=== PATIENT | male | born 1955 | race Caucasian/White ===

== ENCOUNTER 2017-04-09 10:12 | Emergency (ER) | payer MEDICARE, SELFPAY ==
--- NOTE | 2017-04-09 10:15 | EDM.PDOC ---
ED HPI GENERAL MEDICAL PROBLEM - General Chief Complaint: Bite:Animal, Insect Stated Complaint: STUNG BY BEE Time Seen by Provider: 04/09/17 10:29 Source of Information: Reports: Patient, RN, RN Notes Reviewed History Limitations: Reports: No Limitations - History of Present Illness INITIAL COMMENTS - FREE TEXT/NARRATIVE: Patient states he was stung by a bee this morning while using a chain saw. States stung on the top of the head. Feels like his airway is constricted. Lips feel swollen. Complains of nausea and burning sensation in his feet. All symptoms beginning immediately after bee sting. Onset: Today Location: Reports: Head, Chest, Lower Extremity, Left, Lower Extremity, Right Severity: Moderate Improves with: Reports: None Worsens with: Reports: None Associated Symptoms: Reports: No Other Symptoms Abdomen Pain Score (Numeric/FACES): 8 - Related Data Allergies Allergy/AdvReac Type Severity Reaction Status Date / Time No Known Allergies Allergy Verified 12/06/13 13:13 Home Meds: Home Meds Hydrochlorothiazide/Lisinopril [Lisinopril-HCTZ 20-12.5 MG] 25 - 40 tab PO BID 12/06/13 [History] Omeprazole 20 mg PO DAILY 12/06/13 [History] amLODIPine [Norvasc] 10 mg PO DAILY 12/06/13 [History] Social & Family History - Family History Family Medical History: Noncontributory - Tobacco Use Years of Tobacco use: 30 - Alcohol Use Days Per Week of Alcohol Use: 7 Number of Drinks Per Day: 3 Total Drinks Per Week: 21 - Recreational Drug Use Recreational Drug Use: No Drug Use in Last 12 Months: No Recreational Drug Type: Reports: Cocaine Recreational Drug Last Use: 20 YEARS AGO ED ROS GENERAL - Review of Systems Review Of Systems: ROS reveals no pertinent complaints other than HPI. ED EXAM, SKIN/RASH Exam: See Below Exam Limited By: No Limitations General Appearance: Alert, WD/WN, No Apparent Distress Eye Exam: Bilateral Eye: Normal Inspection Ears: Normal External Exam, Normal Canal, Hearing Grossly Normal, Normal TMs Nose: Normal Inspection, Normal Mucosa, No Blood Throat/Mouth: Other (lips mildly swollen. No swelling of tongue.) Head: Atraumatic, Normocephalic Neck: Normal Inspection, Supple, Non-Tender, Full Range of Motion Respiratory/Chest: Other (lung sounds diminished) Cardiovascular: Tachycardia GI/Abdominal: Tender, Other (nausea) (Male) Exam: Deferred Rectal (Males) Exam: Deferred Back Exam: Normal Inspection, Full Range of Motion, NT Extremities: Normal Inspection, Normal Range of Motion, Non-Tender, No Pedal Edema, Normal Capillary Refill Neurological: Other (feet burning-tingling sensation. ) Psychiatric: Anxious Skin: Other (No visible swelling at location of reported bee sting.) Lymphatic: No Adenopathy Course - Vital Signs Last Recorded V/S: Last Vital Signs Temp 97.3 F 04/09/17 10:31 Pulse 110 H 04/09/17 10:31 Resp 20 04/09/17 10:31 BP 103/58 L 04/09/17 10:31 Pulse Ox 96 04/09/17 10:31 - Orders/Labs/Meds Orders: Active Orders 24 hr Category Date Time Status Peripheral IV Care [RC] . DIRECTED Care 04/09/17 10:34 Active Sodium Chloride 0.9% [Saline Flush] Med 04/09/17 10:33 Active 10 ml FLUSH ASDIRECTED PRN Peripheral IV Insertion Adult [OM.PC] Stat Oth 04/09/17 10:34 Ordered Medication Orders Sodium Chloride (Saline Flush) 10 ml FLUSH ASDIRECTED PRN PRN Reason: Keep Vein Open Last Admin: 04/09/17 10:49 Dose: 10 ml Meds: Medications Generic Name Dose Route Start Last Admin Trade Name Freq PRN Reason Stop Dose Admin Sodium Chloride 10 ml 04/09/17 10:33 04/09/17 10:49 Saline Flush FLUSH 10 ml ASDIRECTED PRN Administration Keep Vein Open Discontinued Medications Generic Name Dose Route Start Last Admin Trade Name Freq PRN Reason Stop Dose Admin Diphenhydramine HCl 25 mg 04/09/17 10:34 04/09/17 10:46 Benadryl IVPUSH 04/09/17 10:35 25 mg ONETIME ONE Administration Methylprednisolone Sodium Succinate 125 mg 04/09/17 10:34 04/09/17 10:45 Solu-Medrol IVPUSH 04/09/17 10:35 125 mg ONETIME ONE Administration Ondansetron HCl 4 mg 04/09/17 10:35 04/09/17 10:43 Zofran IV 04/09/17 10:36 4 mg ONETIME ONE Administration Departure - Departure Time of Disposition: 11:16 Disposition: Home, Self-Care 01 Condition: Fair Clinical Impression: Insect bite or sting - Discharge Information Instructions: Insect Bite, [id number] Forms: ED Department Discharge Additional Instructions: RX: Prednisone 40mg. Zyrtec over the counter 10mg for 3 days. Follow up in clinic in 2-3 days. Return to ER with difficulty breathing or any further problems. - My Orders Last 24 Hours: My Active Orders 04/09/17 10:33 Sodium Chloride 0.9% [Saline Flush] 10 ml FLUSH ASDIRECTED PRN 04/09/17 10:34 Peripheral IV Care [RC] . DIRECTED Peripheral IV Insertion Adult [OM.PC] Stat - Assessment/Plan Last 24 Hours: My Active Orders 04/09/17 10:33 Sodium Chloride 0.9% [Saline Flush] 10 ml FLUSH ASDIRECTED PRN 04/09/17 10:34 Peripheral IV Care [RC] . DIRECTED Peripheral IV Insertion Adult [OM.PC] Stat
[2017-04-09] MEDS ORDERED: Sodium Chloride 0.9% 10 ML Syringe FLUSH PRN (10:33)
[2017-04-09] MEDS ORDERED: methylPREDNISolone Sodium Succinate 125 MG/2 ML SDV IVPUSH ONE (10:34)
[2017-04-09] MEDS ORDERED: diphenhydrAMINE 50 MG/ML SDV IVPUSH ONE (10:34)
[2017-04-09] MEDS ORDERED: Ondansetron 4 MG/2 ML SDV IV ONE (10:35)
[2017-04-09 10:36] VITALS: BP 103/58
== END 2017-04-09 11:35 | disposition home or self-care (01) ==
LOC: DL.ED 10:12
DX: T63.441A Toxic effect of venom of bees, accidental (unintentional), initial encounter (principal); Z79.899 Other long term (current) drug therapy
CPT/HCPCS: 96374; 96375; 99283; J1200; J2405; J2930; J7050

== ENCOUNTER 2017-06-05 23:09 | Emergency (ER) | payer MEDICARE, OTHER, SELFPAY ==
[2017-06-05 23:15] VITALS: BP 128/80
--- NOTE | 2017-06-05 23:23 | EDM.PDOC ---
ED HPI GENERAL MEDICAL PROBLEM - General Chief Complaint: Lower Extremity Injury/Pain Stated Complaint: BROKE RIGHT FOOT [id number] Time Seen by Provider: 06/05/17 23:20 Source of Information: Reports: Patient History Limitations: Reports: No Limitations - History of Present Illness INITIAL COMMENTS - FREE TEXT/NARRATIVE: Patient comes emergency Department today with complaints of right foot pain. Earlier today the patient jumped out of the back of a truck approximately 4 feet and landed on his right foot injuring it. He has been able to ambulate on it although it is quite painful. He denies any pain to his right hip femur knee tib-fib or ankle. He primarily planes of pain to the dorsal aspect of his foot in the lateral aspect of the midfoot. He has taken some ibuprofen prior to arrival without improvement of the pain. He has not applied any ice to it. Any sharp shooting stabbing in nature and is much worse when he walks. He denies any numbness or tingling to his toes. Right Feet Pain Score (Numeric/FACES): 7 - Related Data Allergies Allergy/AdvReac Type Severity Reaction Status Date / Time bee venom protein (honey bee) Allergy Swelling Verified 06/05/17 23:16 tramadol Allergy Cannot Verified 06/05/17 23:16 Remember Home Meds: Home Meds Hydrochlorothiazide/Lisinopril [Lisinopril-HCTZ 20-12.5 MG] 25 - 40 tab PO BID 12/06/13 [History] Omeprazole 20 mg PO DAILY 12/06/13 [History] amLODIPine [Norvasc] 10 mg PO DAILY 12/06/13 [History] Amoxicillin/Potassium Clav [Augmentin 875-125 Tablet] 1 each PO BID 06/05/17 [ History] predniSONE [Prednisone] 20 mg PO DAILY 06/05/17 [History] Past Medical History Cardiovascular History: Reports: Hypertension Gastrointestinal History: Reports: GERD, Other (See Below) Other Gastrointestinal History: umbilical hernia, will have surgery this month ( 04-26) - Past Surgical History Respiratory Surgical History: Reports: Other (See Below) Other Respiratory Surgeries/Procedures: surgery on his esophagus Social & Family History - Family History Family Medical History: Noncontributory - Tobacco Use Smoking Status *Q: Current Every Day Smoker Years of Tobacco use: 30 Packs/Tins Daily: 0.1 - Caffeine Use Caffeine Use: Reports: Coffee, Soda - Alcohol Use Days Per Week of Alcohol Use: 7 Number of Drinks Per Day: 3 Total Drinks Per Week: 21 - Recreational Drug Use Recreational Drug Use: No Drug Use in Last 12 Months: No Recreational Drug Type: Reports: Cocaine Recreational Drug Last Use: 20 YEARS AGO Review of Systems - Review of Systems Review Of Systems: ROS reveals no pertinent complaints other than HPI. ED EXAM, GENERAL - Physical Exam Exam: See Below Exam Limited By: No Limitations General Appearance: Alert, WD/WN, No Apparent Distress Peripheral Pulses: 2+: Posterior Tibial (L), Posterior Tibial (R), Dorsalis Pedis (L), Dorsalis Pedis (R) Extremities: Other (Examination of the right lower extremity. There is no bruising swelling ecchymosis or bony deformity or crepitus throughout the entirety of the exam of the right lower extremity. CMS is intact appropriately. There is tenderness to the right mid fifth metatarsal region. There is no breaks in the skin bruising swelling ecchymosis subcutaneous emphysema or crepitus at the site. The rest of the right lower extremity is atraumatic.) Course - Vital Signs Last Recorded V/S: Last Vital Signs Temp 36.8 C 06/05/17 23:12 Pulse 107 H 06/05/17 23:12 Resp 18 06/05/17 23:12 BP 128/80 06/05/17 23:12 Pulse Ox 97 06/05/17 23:12 - Radiology Interpretation Free Text/Narrative:: NOrmal right foot xray per radiology. Departure - Departure Time of Disposition: 23:32 Disposition: Home, Self-Care 01 Clinical Impression: Right foot sprain Qualifiers: Encounter type: initial encounter Qualified Code(s): S93.601A - Unspecified sprain of right foot, initial encounter - Discharge Information Instructions: Cryotherapy, [id number], Foot Sprain Referrals: Jorge Smith NP [Primary Care Provider] - Forms: ED Department Discharge Additional Instructions: Tylenol and or Ibuprofen as needed for pain. RICE therapy rest ice compression elevate. Cryotherapy. Walking boot for comfort. Discontinue when symptoms resolve. Return to the ED if new or worsening symptoms. Follow up with primary care provider in the next 7 days. - Assessment/Plan Assessment:: Right foot sprain Plan: Tylenol and or Ibuprofen as needed for pain. RICE therapy rest ice compression elevate. Cryotherapy. Walking boot for comfort. Discontinue when symptoms resolve. Return to the ED if new or worsening symptoms. Follow up with primary care provider in the next 7 days.
== END 2017-06-05 23:41 | disposition home or self-care (01) ==
LOC: DL.ED 23:09
DX: S93.601A Unspecified sprain of right foot, initial encounter (principal); I10 Essential (primary) hypertension; F17.210 Nicotine dependence, cigarettes, uncomplicated; K21.9 Gastro-esophageal reflux disease without esophagitis; Z79.899 Other long term (current) drug therapy; Z88.5 Allergy status to narcotic agent; Z91.030 Bee allergy status; W17.89XA Other fall from one level to another, initial encounter
CPT/HCPCS: 73630-RT; 99283

== ENCOUNTER 2019-11-14 00:58 | Emergency (ER) | payer MEDICARE, OTHER ==
[2019-11-14 01:09] VITALS: BP 158/84; PULSE 90
[2019-11-14] MEDS ORDERED: Sodium Chloride 0.9% 10 ML Syringe FLUSH PRN (01:10)
--- NOTE | 2019-11-14 01:17 | EDM.PDOC ---
ED HPI GENERAL MEDICAL PROBLEM - General Chief Complaint: General Stated Complaint: HARD TIME BREATHING Time Seen by Provider: 11/14/19 01:12 Source of Information: Reports: Patient, RN, RN Notes Reviewed History Limitations: Reports: No Limitations - History of Present Illness INITIAL COMMENTS - FREE TEXT/NARRATIVE: patient presents to ER with complaint of right upper quadrant pain and right flank pain. Patient states about 12:30am he got up to use the restroom and states this is when the pain began. Patient states he has not had a bowel movement in about 5 days. Patient admits to difficulties with constipation, states he uses MiraLAX. Patient admits to past medical history of hypertension and GERD. Patient states he is disabled as he is Both of his feet broken. Patient states he is a smoker, denies COPD. Patient admits to having some shortness of breath with the pain. Patient denies chest pain, recent illness, recent travel, fever, chills, nausea, vomiting, diarrhea. Onset: Today, Sudden Right Upper Abdomen Pain Score (Numeric/FACES): 9 - Related Data Allergies Allergy/AdvReac Type Severity Reaction Status Date / Time bee venom protein (honey bee) Allergy Swelling Verified 11/14/19 01:05 tramadol Allergy Cannot Verified 11/14/19 01:05 Remember Home Meds: Home Meds Hydrochlorothiazide/Lisinopril [Lisinopril-HCTZ 20-12.5 MG] 25 - 40 tab PO BID 12/06/13 [History] Omeprazole 20 mg PO DAILY 12/06/13 [History] amLODIPine [Norvasc] 10 mg PO DAILY 12/06/13 [History] Amoxicillin/Potassium Clav [Augmentin 875-125 Tablet] 1 each PO BID 06/05/17 [ History] predniSONE [Prednisone] 20 mg PO DAILY 06/05/17 [History] Past Medical History Cardiovascular History: Reports: Hypertension Gastrointestinal History: Reports: GERD, Other (See Below) Other Gastrointestinal History: umbilical hernia, will have surgery this month ( 04-26) - Past Surgical History Respiratory Surgical History: Reports: Other (See Below) Other Respiratory Surgeries/Procedures: surgery on his esophagus Social & Family History - Family History Family Medical History: Noncontributory - Tobacco Use Smoking Status *Q: Heavy Tobacco Smoker Years of Tobacco use: 45 Packs/Tins Daily: 0.8 - Caffeine Use Caffeine Use: Reports: Soda - Recreational Drug Use Recreational Drug Use: No ED ROS GENERAL - Review of Systems Review Of Systems: Comprehensive ROS is negative, except as noted in HPI. ED EXAM, GENERAL - Physical Exam Exam: See Below Exam Limited By: No Limitations General Appearance: Alert, WD/WN, Moderate Distress Eye Exam: Bilateral Eye: EOMI, Normal Inspection Ears: Normal External Exam, Hearing Grossly Normal Nose: Normal Inspection Throat/Mouth: Normal Inspection, Normal Voice, No Airway Compromise Head: Atraumatic, Normocephalic Neck: Normal Inspection, Supple, Non-Tender, Full Range of Motion Cardiovascular: Normal Peripheral Pulses, Regular Rate, Rhythm, No Edema, No Gallop, No JVD, No Murmur, No Rub Peripheral Pulses: 2+: Radial (L), Radial (R) GI/Abdominal: Distended, Rigid, Abnormal Bowel Sounds (hypoactive) (Male) Exam: Deferred Rectal (Males) Exam: Deferred Back Exam: Normal Inspection, Full Range of Motion Extremities: Pedal Edema (Bilateral +2), Joint Swelling (Bilateral ankles +2), Limited Range of Motion, Other (Pain to the feet and ankles bilaterally, chronic ) Neurological: Alert, Oriented, CN II-XII Intact, Normal Cognition, No Motor/ Sensory Deficits Psychiatric: Normal Affect, Normal Mood Skin Exam: Warm, Dry, Intact, Normal Color, No Rash Lymphatic: No Adenopathy Course - Vital Signs Last Recorded V/S: Last Vital Signs Temp 98.4 F 11/14/19 01:06 Pulse 90 11/14/19 01:06 Resp 20 11/14/19 01:06 BP 158/84 H 11/14/19 01:06 Pulse Ox 96 11/14/19 01:06 - Orders/Labs/Meds Orders: Active Orders 24 hr Category Date Time Status EKG Documentation Completion [RC] STAT Care 11/14/19 01:11 Active Peripheral IV Care [RC] . DIRECTED Care 11/14/19 01:11 Active Peripheral IV Insertion Adult [OM.PC] Stat Oth 11/14/19 01:10 Ordered Labs: Laboratory Tests 11/14/19 11/14/19 11/14/19 Range/Units 01:13 01:13 01:13 WBC 8.5 (5.0-10.0) 10^3/uL RBC 5.04 (4.6-6.2) 10^6/uL Hgb 16.5 (14.0-18.0) g/dL Hct 46.9 (40.0-54.0) % MCV 93.1 (80-100) fL MCH 32.7 (27.0-34.0) pg MCHC 35.2 H (33.0-35.0) g/dL Plt Count 214 (150-450) 10^3/uL Neut % (Auto) 40.4 L (42.2-75.2) % Lymph % (Auto) 42.1 (20.5-50.1) % [place] % (Auto) 12.7 H (2-8) % Eos % (Auto) 4.3 H (1.0-3.0) % Baso % (Auto) 0.5 (0.0-1.0) % Sodium 140 (136-145) mmol/L Potassium 3.7 (3.5-5.1) mmol/L Chloride 101 (98-107) mmol/L Carbon Dioxide 32 (21-32) mmol/L Anion Gap 10.7 (7-13) mEq/L BUN 14 (7-18) mg/dL Creatinine 0.87 (0.70-1.30) mg/dL Est Cr Clr Drug Dosing 88.04 mL/min Estimated GFR (MDRD) > 60 BUN/Creatinine Ratio 16.1 (No establ ref range) Glucose 134 H (74-99) mg/dL Calcium 8.8 (8.5-10.1) mg/dL Total Bilirubin 0.3 (0.2-1.0) mg/dL AST 24 (15-37) U/L ALT 50 (16-63) U/L Alkaline Phosphatase 71 (46-116) U/L Troponin I < 0.017 (0.000-0.056) ng/mL B-Natriuretic Peptide 15 (0-100) pg/ml Total Protein 6.7 (6.4-8.2) g/dL Albumin 3.7 (3.4-5.0) g/dL Globulin 3.0 Albumin/Globulin Ratio 1.2 Amylase 73 (25-115) U/L Lipase 176 (73-393) U/L Urine Color (YELLOW) Urine Appearance (CLEAR) Urine pH (5.0-9.0) Ur Specific [place] (1.005-1.030) Urine Protein (NEGATIVE) Urine Glucose (UA) (NEGATIVE) Urine Ketones (NEGATIVE) Urine Occult Blood (NEGATIVE) Urine Nitrite (NEGATIVE) Urine Bilirubin (NEGATIVE) Urine Urobilinogen (0.2-1.0) mg/dL Ur Leukocyte Esterase (NEGATIVE) Urine RBC /HPF Urine WBC (0-5/HPF) /HPF Ur Epithelial Cells (NOT SEEN) /HPF Amorphous Sediment (NOT SEEN) /HPF Urine Bacteria (0-FEW/HPF) /HPF Urine Mucus (NOT SEEN) /LPF 11/14/19 Range/Units 01:44 WBC (5.0-10.0) 10^3/uL RBC (4.6-6.2) 10^6/uL Hgb (14.0-18.0) g/dL Hct (40.0-54.0) % MCV (80-100) fL MCH (27.0-34.0) pg MCHC (33.0-35.0) g/dL Plt Count (150-450) 10^3/uL Neut % (Auto) (42.2-75.2) % Lymph % (Auto) (20.5-50.1) % [place] % (Auto) (2-8) % Eos % (Auto) (1.0-3.0) % Baso % (Auto) (0.0-1.0) % Sodium (136-145) mmol/L Potassium (3.5-5.1) mmol/L Chloride (98-107) mmol/L Carbon Dioxide (21-32) mmol/L Anion Gap (7-13) mEq/L BUN (7-18) mg/dL Creatinine (0.70-1.30) mg/dL Est Cr Clr Drug Dosing mL/min Estimated GFR (MDRD) BUN/Creatinine Ratio (No establ ref range) Glucose (74-99) mg/dL Calcium (8.5-10.1) mg/dL Total Bilirubin (0.2-1.0) mg/dL AST (15-37) U/L ALT (16-63) U/L Alkaline Phosphatase (46-116) U/L Troponin I (0.000-0.056) ng/mL B-Natriuretic Peptide (0-100) pg/ml Total Protein (6.4-8.2) g/dL Albumin (3.4-5.0) g/dL Globulin Albumin/Globulin Ratio Amylase (25-115) U/L Lipase (73-393) U/L Urine Color Yellow (YELLOW) Urine Appearance Slightly cloudy (CLEAR) Urine pH 7.0 (5.0-9.0) Ur Specific [place] 1.020 (1.005-1.030) Urine Protein 30 H (NEGATIVE) Urine Glucose (UA) Negative (NEGATIVE) Urine Ketones Negative (NEGATIVE) Urine Occult Blood Negative (NEGATIVE) Urine Nitrite Negative (NEGATIVE) Urine Bilirubin Negative (NEGATIVE) Urine Urobilinogen 0.2 (0.2-1.0) mg/dL Ur Leukocyte Esterase Negative (NEGATIVE) Urine RBC 0-5 /HPF Urine WBC 0-5 (0-5/HPF) /HPF Ur Epithelial Cells Rare (NOT SEEN) /HPF Amorphous Sediment Few (NOT SEEN) /HPF Urine Bacteria Rare (0-FEW/HPF) /HPF Urine Mucus Rare (NOT SEEN) /LPF Meds: Medications Discontinued Medications Generic Name Dose Route Start Last Admin Trade Name Freq PRN Reason Stop Dose Admin Iopamidol 100 ml 11/14/19 01:55 11/14/19 02:31 Isovue-300 (61%) IVPUSH 11/14/19 01:56 100 ml ONETIME ONE Administration Methylnaltrexone [place] 12 mg 11/14/19 02:57 11/14/19 03:02 Relistor SUBCUT 11/14/19 02:58 12 mg ONETIME ONE Administration Sodium Chloride 10 ml 11/14/19 01:10 11/14/19 01:17 Saline Flush FLUSH 10 ml ASDIRECTED PRN Administration Keep Vein Open - Radiology Interpretation Free Text/Narrative:: Chest xray: FINDINGS: Lungs: Coarse nonspecific bilateral perihilar reticulonodular opacities. Pleural space: Unremarkable. No pleural effusion. No pneumothorax. Heart/Mediastinum: Mild cardiomegaly. Vasculature: Atherosclerotic disease of the thoracic aorta. Bones/joints: Status post right acromioclavicular joint decompression. IMPRESSION: No acute cardiopulmonary pathology. Thank you for allowing us to participate in the care of your patient. Dictated and Authenticated by: Saulo Birmingham MD 11/14/2019 1:50 AM Central Time ([place] & [place]) Abdominal flat and upright: FINDINGS: Gastrointestinal tract: Nonspecific nonobstructive bowel gas pattern. Intraperitoneal space: Normal. No free air. Bones/joints: Unremarkable for age. IMPRESSION: Nonspecific nonobstructive bowel gas pattern. Thank you for allowing us to participate in the care of your patient. Dictated and Authenticated by: Saulo Birmingham MD 11/14/2019 1:51 AM Central Time ([place] & [place]) CT Abdomen/Pelvis with contrast: FINDINGS: Lungs: Bilateral dependent atelectasis. Mediastinum: Small hiatal hernia. Liver: Hepatomegaly and geographic steatosis. Gallbladder and bile ducts: Normal. No calcified stones. No ductal dilation. Pancreas: Normal. No ductal dilation. Spleen: Normal. No splenomegaly. Adrenals: Normal. No mass. Kidneys and ureters: Several simple left renal cysts. Nonobstructing right renal calculus. No hydronephrosis. Mild nonspecific bilateral perinephric fat stranding. Stomach and bowel: Unremarkable. No obstruction. No mucosal thickening. Appendix: No evidence of appendicitis. Intraperitoneal space: Unremarkable. No free air. No significant fluid collection. Vasculature: Atherosclerotic disease of the abdominal aorta. Atherosclerotic disease of the coronary arteries. Lymph nodes: Unremarkable. No enlarged lymph nodes. Bladder: Unremarkable as visualized. Reproductive: Unremarkable as visualized. Bones/joints: Multilevel degenerative disease and facet hypertrophy of the lumbar spine. Stenosis of the spinal canal at L4-L5. Soft tissues: Fat containing bilateral inguinal hernias, larger on the right. IMPRESSION: 9 mm ground-glass pulmonary nodule in the right lower lobe. Recommend CT at 6- 12 months to confirm persistence of the nodule, then CT at 3 and at 5 years. (Delfina et al., Fleischner Society, 2017) Hepatomegaly and geographic steatosis. Nonobstructing right renal calculus. No hydronephrosis. COMMENTS: Consistent with the [employer]'s Incidental Findings Committee white paper (J Am Shan Radiol 2018): Any incidental cystic renal lesion classified in this report as too small to characterize or simple appearing is likely a benign cyst. No follow-up imaging is recommended for these lesions per consensus recommendations based on imaging criteria. Thank you for allowing us to participate in the care of your patient. Dictated and Authenticated by: Saulo Birmingham MD 11/14/2019 2:34 AM Central Time ([place] & [place]) See rad report - Re-Assessments/Exams Free Text/Narrative Re-Assessment/Exam: Patient rated pain 4/10 while in the ER, denied any need for pain medication. Departure - Departure Time of Disposition: 03:20 Disposition: Home, Self-Care 01 Condition: Fair Clinical Impression: Therapeutic opioid-induced constipation (OIC), Right flank pain, Right upper quadrant pain - Discharge Information *PRESCRIPTION DRUG MONITORING PROGRAM REVIEWED*: No *COPY OF PRESCRIPTION DRUG MONITORING REPORT IN PATIENT LUCIUS: No Instructions: Constipation, Adult, [id number], Abdominal Pain, Adult, Easy-to -Read, Flank Pain, Adult, [id number] Forms: ED Department Discharge Additional Instructions: Return to ER with any worsening of problems Follow up with your primary care facility Drink plenty of water Increase Miralax to twice daily Sepsis Event Note - Evaluation Sepsis Screening Result: No Definite Risk - Focused Exam Vital Signs: Vital Signs Temp Pulse Resp BP Pulse Ox 11/14/19 01:06 98.4 F 90 20 158/84 H 96 Date Exam was Performed: 11/14/19 Time Exam was Performed: 03:07 - My Orders Last 24 Hours: My Active Orders 11/14/19 01:10 Peripheral IV Insertion Adult [OM.PC] Stat 11/14/19 01:11 EKG Documentation Completion [RC] STAT Peripheral IV Care [RC] . DIRECTED - Assessment/Plan Last 24 Hours: My Active Orders 11/14/19 01:10 Peripheral IV Insertion Adult [OM.PC] Stat 11/14/19 01:11 EKG Documentation Completion [RC] STAT Peripheral IV Care [RC] . DIRECTED
[2019-11-14 01:40] LABS: ANION GAP 10.7 mEq/L (7-13); CHLORIDE,CL 101 mmol/L (98-107); SODIUM,NA 140 mmol/L (136-145)
[2019-11-14] MEDS ORDERED: Iopamidol 612 MG/ML 100 ML Bottle IVPUSH ONE (01:55)
[2019-11-14] MEDS ORDERED: Methylnaltrexone 12 MG/0.6 ML SDV SUBCUT ONE (02:57)
== END 2019-11-14 03:05 | disposition home or self-care (01) ==
LOC: DL.ED 00:58
DX: K59.03 Drug induced constipation (principal); T40.2X5A Adverse effect of other opioids, initial encounter; F17.210 Nicotine dependence, cigarettes, uncomplicated; K21.9 Gastro-esophageal reflux disease without esophagitis; I10 Essential (primary) hypertension; Z91.030 Bee allergy status; Z88.5 Allergy status to narcotic agent; Z79.899 Other long term (current) drug therapy
CPT/HCPCS: 36415; 71046; 74019; 74177; 80053; 81001; 82150; 83690; 83880; 84484; 85025; 93005; 96372; 99284; J2212; Q9967

== ENCOUNTER 2021-10-08 10:37 | Emergency (ER) | payer MEDICARE, OTHER ==
[2021-10-08 10:58] VITALS: BP 120/65; PULSE 78
[2021-10-08] MEDS ORDERED: HYDROmorphone 1 MG/ML Syringe IM ONE (11:03)
[2021-10-08 11:43] LABS: ANION GAP 9.9 mEq/L (7-13); CHLORIDE,CL 100 mmol/L (98-107); ESTIMATED GFR > 60; SODIUM,NA 135 mmol/L (136-145)
== END 2021-10-08 12:30 | disposition home or self-care (01) ==
LOC: DL.ED 10:37
DX: G89.18 Other acute postprocedural pain (principal); I10 Essential (primary) hypertension; K21.9 Gastro-esophageal reflux disease without esophagitis; Z79.899 Other long term (current) drug therapy; Z88.6 Allergy status to analgesic agent; Z87.891 Personal history of nicotine dependence; Z91.030 Bee allergy status
CPT/HCPCS: 36415; 71046; 80053; 85025; 96372; 99283; 99284; J1170

== ENCOUNTER 2023-02-27 01:57 | Emergency (ER) | payer MEDICARE, OTHER ==
[2023-02-27 03:59] VITALS: BP 148/87; PULSE 88
== END 2023-02-27 03:48 | disposition home or self-care (01) ==
LOC: DL.ED 01:57
DX: M54.50 Low back pain, unspecified (principal); I10 Essential (primary) hypertension; K21.9 Gastro-esophageal reflux disease without esophagitis; Z91.038 Other insect allergy status; Z88.5 Allergy status to narcotic agent; Z79.899 Other long term (current) drug therapy; Z79.82 Long term (current) use of aspirin
CPT/HCPCS: 99284

== ENCOUNTER 2024-07-22 10:23 | Emergency (ER) | payer MEDICARE, OTHER ==
[2024-07-22 10:37] VITALS: BP 142/80; PULSE 85
== END 2024-07-22 10:52 | disposition left against medical advice (07) ==
LOC: DL.ED 10:23
DX: Z53.21 Procedure and treatment not carried out due to patient leaving prior to being seen by health care provider (principal)